=== PATIENT | female | born 1985 | race Two or more races ===

== ENCOUNTER 2016-09-19 17:40 | Emergency (ER) | payer SELFPAY ==
[~2016-09-19] VITALS: Ht 170.2 cm; Wt 93.0 kg
[2016-09-19 17:50] VITALS: BP 116/79
== END 2016-09-19 18:45 | disposition left against medical advice (07) ==
LOC: EME 17:40
DX: Z04.1 Encounter for examination and observation following transport accident (principal); Z53.21 Procedure and treatment not carried out due to patient leaving prior to being seen by health care provider; M79.672 Pain in left foot; M79.662 Pain in left lower leg; F17.200 Nicotine dependence, unspecified, uncomplicated